=== PATIENT | female | born 1960 | race African-American/Black ===

== ENCOUNTER 2018-02-26 21:14 | Emergency (ER) | payer OTHER ==
[~2018-02-26] VITALS: Ht 160 cm; Wt 52.2 kg
[2018-02-26 21:20] VITALS: BP 145/80
--- NOTE | 2018-02-26 21:33 | Emergency Room Report ---
History of Present Illness General Chief Complaint: Chemical Exposure Source: Patient Present Illness HPI Patient is a 57-year-old female presented after increased right-sided index finger pain. Patient reports being exposed to some kind of a cleaning solvent at work. She reports having increased pain and swelling to her finger. She reports having prior fungal infection to her nail which she been previous evaluated for. She denies any fever. She reports having increased pain to the tip of the finger in the thenar aspect of the right index finger the patient reports injury approximately 3 days prior to arrival. Allergies: Coded Allergies: No Known Allergies (Unverified , 02/26/18) Patient History Past Medical History: see triage record Last Menstrual Period: n/a Reviewed Nursing Documentation: PMH: Agreed; PSxH: Agreed Nursing Documentation-PMH Past Medical History: No History, Except For Review of Systems All Other Systems: negative except mentioned in HPI Physical Exam Vital Signs Date Time Temp Pulse Resp B/P (MAP) Pulse Ox O2 Delivery O2 Flow Rate FiO2 02/26/18 21:17 98.8 87 16 145/80 97 Room Air General Appearance: well appearing, no apparent distress, alert, GCS 15 Head: normocephalic, atraumatic ENT: hearing grossly normal, normal voice Neck: full range of motion, supple Respiratory: no respiratory distress, speaking full sentences Cardiovascular #1: normal inspection Musculoskeletal: other - swelling to right index finger nailfold, nail discoloration, yellowing Neurologic: normal inspection, alert, oriented x3, normal gait Psychiatric: mood/affect normal Skin: other - right index finger skin discoloration, swelling to dip, slight proximal discoloration Procedures Incision and Drainage Incision and Drainage : Consent: Written Site: index finger Blade Size: 15 I & D Procedure: betadine prep, sterile drapes applied, sterile dressing applied Wound Location: upper extremity Wound's Depth, Shape: superficial Wound Length (cm): 0 Wound Explored: clean Irrigated w/ Saline (ccs): 2 Anesthesia: Lidocaine w/ Epi Volume Anesthetic (ccs): 1 Patient Tolerated: Well Complications: None Medical Decision Making Diagnostic Impression: Primary Impression: Chemical exposure Additional Impression: Paronychia of finger ER Course The patient presented for right index finger pain. Differential diagnosis included was not limited to burn, paronychial infection, hematoma, and others. Patient has a benign exam and does not appear to require any further imaging or laboratory testing at this time. The patient appears to have some evidence of a particular infection. The patient was consented for incision and drainage. The patient was noted to have moderate amount of white purulent material which drained from her incision.The patient appears to have some evidence of discoloration to the skin which is away from the paronychial area which the patient states was injured during exposure to some chemical. There does not appear to be any second or third-degree burn to that area. The patient is advised wound recheck in 2 days for further evaluation and possible repeat I&D if symptoms persist or patient is given prescription for Keflex as well as pain medications. Last Vital Signs Date Time Temp Pulse Resp B/P (MAP) Pulse Ox O2 Delivery O2 Flow Rate FiO2 02/26/18 21:17 98.8 87 16 145/80 97 Room Air Status: improved Disposition: HOME, SELF-CARE Condition: Stable Scripts Ibuprofen* (MOTRIN*) 600 Mg Tablet 600 MG ORAL Q8H PRN for For Pain, #30 TAB 0 Refills Prov: Sánchez Patterson MD 02/26/18 Cephalexin* (KEFLEX*) 500 Mg Capsule 500 MG ORAL EVERY 6 HOURS, #28 CAP Prov: Sánchez Patterson MD 02/26/18 Hydrocodone Bit/Acetaminophen 5-325* (NORCO 5-325*) 1 Each Tablet 1 TAB ORAL Q6H PRN for For Pain, #10 TAB 0 Refills Prov: Sánchez Patterson MD 02/26/18 Sánchez Patterson MD Feb 26, 2018 21:33
[2018-02-26] MEDS ORDERED: IBUPROFEN600 MG ORAL (21:54)
[2018-02-26] MEDS ORDERED: CEPHALEXIN500 MG ORAL (21:54)
[2018-02-26] MEDS ORDERED: NORCO 5-325 TA1 EACH ORAL (21:54)
[2018-02-26] MEDS ORDERED: Norco 5mg/325mg tab ORAL ONE (22:00)
[2018-02-26 22:10] VITALS: BP 145/80
== END 2018-02-26 22:10 | disposition home or self-care (01) ==
LOC: EMR 21:48
DX: L03.011 Cellulitis of right finger (principal); Z77.098 Contact with and (suspected) exposure to other hazardous, chiefly nonmedicinal, chemicals
CPT/HCPCS: 99283